=== PATIENT | female | born 1985 | race Caucasian/White ===

== ENCOUNTER 2017-08-22 00:15 | Emergency (ER) | payer SELFPAY ==
[2017-08-22 00:28] VITALS: BP 117/78; PULSE 94; RESP 16; TEMP 100; O2SAT 98
[2017-08-22] MEDS ORDERED: Promethazine/Cod 6.25mg-10mg/5ml Syr UD PO STA (00:43)
[2017-08-22] MEDS ORDERED: Promethazine/Cod 6.25mg-10mg/5ml Syr UD ONE (00:46)
[2017-08-22] MEDS ORDERED: Albuterol 0.083% Inhal Sol (2.5 mg/3 mL) UD ONE ×2 (00:48→01:15)
[2017-08-22] MEDS: Albuterol 0.083% Inhal Sol (2.5 mg/3 mL) UD INH SCH ×2 (00:50→01:12)
--- NOTE | 2017-08-22 01:36 | C.PDOC ---
History Of Present Illness 32 year old female presents to the ER with a complaint of fever, cough, and sore throat for the past week. Patient states she has been taking OTC meds and some left over amoxicillin with no relief to symptoms. Patient notes she is a smoker; denies recent travel or sick contact. Time Seen by Provider: 08/22/17 00:35 Chief Complaint (Nursing): Flu-like Symptoms History Per: Patient History/Exam Limitations: no limitations Onset/Duration Of Symptoms: Days Current Symptoms Are (Timing): Still Present Location Of Pain: Throat Sick Contacts (Context): None Associated Symptoms: Fever, Sore Throat, Cough Ear Symptoms: Bilateral: None Recent travel outside of the [place]: No Past Medical History Reviewed: Historical Data, Nursing Documentation, Vital Signs Vital Signs: Last Vital Signs Temp 100 F H 08/22/17 00:24 Pulse 94 H 08/22/17 00:24 Resp 16 08/22/17 00:24 BP 117/78 08/22/17 00:24 Pulse Ox 98 08/22/17 02:21 - Medical History PMH: No Chronic Diseases Surgical History: No Surg Hx Family History: States: Unknown Family Hx - Social History Hx Tobacco Use: Yes Hx Alcohol Use: Yes Hx Substance Use: No - Immunization History Hx Tetanus Toxoid Vaccination: No Hx Influenza Vaccination: No Hx Pneumococcal Vaccination: No Review Of Systems Constitutional: Positive for: Fever. Negative for: Chills ENT: Positive for: Throat Pain Cardiovascular: Negative for: Chest Pain Respiratory: Positive for: Cough. Negative for: Shortness of Breath Physical Exam - Physical Exam Appears: Non-toxic, No Acute Distress Skin: Normal Color, Warm, Dry Head: Atraumatic, Normacephalic Eye(s): bilateral: Normal Inspection Nose: Normal, No Discharge Oral Mucosa: Moist Throat: Normal, No Erythema, No Exudate Neck: Normal, Supple Chest: Symmetrical, No Tenderness Cardiovascular: Rhythm Regular Respiratory: Rhonchi (Scattered), Wheezing (Expiratory), Other (Good air entry) Neurological/Psych: Oriented x3, Normal Speech, Normal Cognition Gait: Steady ED Course And Treatment O2 Sat by Pulse Oximetry: 98 (room air) Pulse Ox Interpretation: Normal Progress Note: CXR, influenze ab, and rapid strep ordered. nebulizer treatment, prednisone, and cough syrup administered. Reassessment Condition: Improved (Symptoms improved after meds. CXR wnl. pt d/c with meds and advised to follow up with PMD or in clinic . Pt verbalized understanding of these instructions) Disposition Counseled Patient/Family Regarding: Diagnosis, Need For Followup, Rx Given - Disposition Referrals: [facility] [Outside] Disposition: HOME/ ROUTINE Disposition Time: 01:33 Condition: STABLE Additional Instructions: Increase PO fluids Take meds as directed Return to ER if worse Prescriptions: Albuterol HFA [Ventolin HFA 90 mcg/actuation (8 g)] 2 puff IH QID #1 inhaler Azithromycin [Zithromax] 250 mg PO DAILY #6 tab Benzonatate [Tessalon Perles] 100 mg PO TID #20 sgl Cetirizine HCl [Zyrtec] 10 mg PO DAILY #20 capsule predniSONE [Prednisone] 40 mg PO DAILY #8 tab Instructions: Acute Bronchitis (ED) Forms: [employer] (Frisian) - Clinical Impression Clinical Impression: Bronchitis - Scribe Statement The provider has reviewed the documentation as recorded by the Scribximena Bates All medical record entries made by the Scribe were at my direction and personally dictated by me. I have reviewed the chart and agree that the record accurately reflects my personal performance of the history, physical exam, medical decision making, and the department course for this patient. I have also personally directed, reviewed, and agree with the discharge instructions and disposition.
--- NOTE | 2017-08-22 09:00 | RAD ---
HISTORY: COMPARISON: 07/26/2013. TECHNIQUE: Chest PA and lateral FINDINGS: LINES AND TUBES: None. LUNG AND PLEURA: The lungs are well inflated. The right lung is clear. There is airspace disease in the left lower lobe with air bronchogram. HEART AND MEDIASTINUM: The heart is not enlarged. The hilar and mediastinal contours are within normal limits. SKELETAL STRUCTURES: The bony structures are within normal limits for the patient's age. VISUALIZED UPPER ABDOMEN: Normal. OTHER FINDINGS: None. IMPRESSION: Left lower lobe pneumonia. Follow-up after medical management is recommended to ensure complete resolution. There is a discrepancy with the ER preliminary read. Important findings were discussed with TIKI López on 08/22/2017 at 8:55 a.m. The final report is also tagged to the PA review folder.
== END 2017-08-22 01:45 | disposition home or self-care (01) ==
LOC: C.ER 00:15
DX: J40 Bronchitis, not specified as acute or chronic (principal); F17.210 Nicotine dependence, cigarettes, uncomplicated

== ENCOUNTER 2018-03-03 11:09 | Emergency (ER) | payer MEDICAID, OTHER ==
[2018-03-03 11:14] VITALS: O2SAT 98
[2018-03-03] MEDS ORDERED: Sodium Chloride 0.9% 1,000 ML IV ONE (11:28)
[2018-03-03] MEDS ORDERED: Sodium Chloride 0.9% 1,000 ML ONE (11:45)
[2018-03-03] MEDS ORDERED: Clindamycin 600mg/50ml NS 600 MG/50 ML BAG IVPB ONE (11:45)
--- NOTE | 2018-03-03 12:12 | C.PDOC ---
History Of Present Illness 32 yo female come in for evaluation of sore throat gradually developed for past 3 days associated with fever, pain on swallow. Pt admits, " for past 4-5 months developed frequent strep throat". Otherwise, pt denies headache, dizziness, drooling, neck pain, CP, cough, wheezing, SOB, abd. pain, V/D, back pain, UTI sx. Ambulate to Ed for evaluation, not in any apparent distress. Time Seen by Provider: 03/03/18 11:19 Chief Complaint (Nursing): ENT Problem History Per: Patient Past Medical History Reviewed: Historical Data, Nursing Documentation, Vital Signs Vital Signs: Last Vital Signs Temp 98.3 F 03/03/18 11:12 Pulse 91 H 03/03/18 11:12 Resp 20 03/03/18 11:12 BP 120/80 03/03/18 11:12 Pulse Ox 98 03/03/18 13:28 - Medical History PMH: No Chronic Diseases Denies: Asthma, COPD Family History: States: Unknown Family Hx - Social History Hx Tobacco Use: Yes Hx Alcohol Use: Yes Hx Substance Use: No - Immunization History Hx Tetanus Toxoid Vaccination: No Hx Influenza Vaccination: No Hx Pneumococcal Vaccination: No Review Of Systems Except As Marked, All Systems Reviewed And Found Negative. Constitutional: Positive for: Fever. Negative for: Malaise ENT: Positive for: Nose Congestion, Throat Pain, Throat Swelling. Negative for : Ear Pain, Ear Discharge, Nose Discharge Cardiovascular: Negative for: Chest Pain, Palpitations Respiratory: Negative for: Cough, Shortness of Breath, Wheezing Gastrointestinal: Negative for: Nausea, Vomiting, Abdominal Pain, Diarrhea Genitourinary: Negative for: Dysuria Musculoskeletal: Negative for: Neck Pain Skin: Negative for: Rash Neurological: Negative for: Weakness, Numbness, Altered Mental Status, Headache , Dizziness Physical Exam - Physical Exam Appears: Well, Non-toxic, No Acute Distress Skin: Normal Color, Warm, Dry, No Rash Head: Normacephalic Eye(s): bilateral: PERRL Ear(s): Bilateral: Normal Nose: No Flaring, Discharge (scant clear rhinorrhea B/L), No Deformity Oral Mucosa: Moist, No Drooling Throat: Erythema (diffuse B/L), Exudate (B/L copious with mod B/L tonsillar enlargement), No Drooling, Other (uvula midline, no edema.) Neck: Trachea Midline, Supple, Other ((-) meningeal sign) Lymphatic: Adenopathy (B/L submandibular LMD) Cardiovascular: Rhythm Regular, No Murmur, No JVD Respiratory: No Decreased Breath Sounds, No Accessory Muscle Use, No Stridor, No Wheezing Gastrointestinal/Abdominal: Soft, No Tenderness, No Distention, No Guarding Back: No CVA Tenderness Extremity: Normal ROM, No Deformity, No Swelling Neurological/Psych: Oriented x3, Normal Speech ED Course And Treatment - Laboratory Results Result Diagrams: 03/03/18 12:08 03/03/18 12:08 Lab Interpretation: No Acute Changes O2 Sat by Pulse Oximetry: 98 Pulse Ox Interpretation: Normal Progress Note: On re-evaluation, pt is afebrile, hemodynamicaly stable. non- toxic. Tolerate po well in ED. PulsEOx 98% RA. ENT: exam c/w acute tonsillitis. uvula midline, no edema. neck: Supple, (-) meningeal sign. Lungs : CTA B/L, BS equal B/L. Abd: benign, (-) guarding, (-) rebound. Neurologicaly intact. Blood work review and appears normal. Labette (-). STrep ( -). results review and discussed with patient. Pt advised on course of ds. ref. to f/u with PMD, ENT in 2-3 days for re-evaluation. Return to ED if anyw orsening or new changes. Disposition Counseled Patient/Family Regarding: Studies Performed, Diagnosis, Need For Followup, Rx Given - Disposition Referrals: Baldo Santacruz MD [Staff Provider] - Disposition: HOME/ ROUTINE Disposition Time: 13:14 Condition: STABLE Additional Instructions: Encourage fluids Take medication as prescribed Follow up with PMD, ENT In 2-3 days for re-evaluation. return to ED if any worsening or new changes. Prescriptions: Clindamycin [Cleocin] 300 mg PO Q6 #28 cap Ibuprofen [Motrin Tab] 600 mg PO TID #20 tab Prednisone [Deltasone] 60 mg PO DAILY #9 tablet Instructions: Sore Throat, Adult (DC) Forms: [employer] (Thai) - Clinical Impression Clinical Impression: Tonsillitis
[2018-03-03 12:13] LABS: BASO % 0.4 % (0.0-2.0); EOS # 0.2 K/uL (0.0-0.7); EOS % 2.3 % (0.0-4.0); HEMOGLOBIN 10.8 g/dL (11.0-16.0); LYMPH # 1.2 K/uL (1.0-4.3); LYMPH % 12.6 % (20.0-40.0); MEAN CELL VOLUME 77.4 fL (81.0-99.0); MEAN CORPUSCULAR HEMOGLOBIN 25.9 pg (27.0-31.0); MEAN CORPUSCULAR HGB CONC 33.5 g/dL (33.0-37.0); MEAN PLATELET VOLUME 7.2 fL (7.2-11.7); MONO # 0.8 K/uL (0.0-0.8); MONO % 8.5 % (0.0-10.0); NEUT # 7.2 K/uL (1.8-7.0); NEUT % 76.2 % (50.0-75.0); NRBC % 0.1 % (0.0-2.0); RBC 4.15 Mil/uL (3.80-5.20); RED CELL DISTRIBUTION WIDTH 14.9 % (11.5-14.5); WHITE BLOOD COUNT 9.5 K/uL (4.8-10.8)
[2018-03-03 12:25] LABS: BLOOD UREA NITROGEN 5 mg/dL (7-17); GFR AFRICAN-AMERICAN > 60; GFR NON-AFRICAN AMERICAN > 60; SQUAMOUS EPITHIAL 13 /hpf (0-5); URINE BACTERIA RARE (<OCC); URINE BILIRUBIN NEGATIVE (NEGATIVE); URINE BLOOD 1+ (NEGATIVE); URINE CLARITY Hazy (Clear); URINE COLOR Amber (YELLOW); URINE GLUCOSE (UA) NORMAL (Normal); URINE LEUKOCYTE ESTERASE NEG Leu/uL (Negative); URINE PROTEIN 1+ mg/dL (NEGATIVE); URINE UROBILINOGEN NORMAL mg/dL (0.2-1.0)
[2018-03-03 13:56] VITALS: BP 131/84; PULSE 83; RESP 18; TEMP 98.4
== END 2018-03-03 14:06 | disposition home or self-care (01) ==
LOC: C.ER 11:09
DX: J03.90 Acute tonsillitis, unspecified (principal); Z72.0 Tobacco use
CPT/HCPCS: 80048; 81001; 85025; 86308; 87040; 87070; 87430; 96365; 96375; 99284; J1885; J2930; J7030

== ENCOUNTER 2019-01-16 14:30 | Emergency (ER) | payer MEDICAID, OTHER ==
[2019-01-16 14:50] VITALS: BP 122/76; PULSE 83; RESP 18; TEMP 98.3; O2SAT 98
--- NOTE | 2019-01-16 15:25 | C.PDOC ---
History Of Present Illness 33 year old female presents to the ED with complaint of sore throat that has worsened since last week. Patient states that for last 2-3 years she has had frequent sore throats. She states that she has been seen at [facility] before and given antibiotics a couple of times. She was told if she keeps getting sore throats that she needs to see an ENT. Patient states that she didn't have insurance at the time, but now has medicaid. She states that the pain is to the right side of her throat. She states that she also has heart burn and that she gets it every night. She admits to not seeing a specialist. Patient denies cough, SOB, wheezing, and difficulty breathing. Time Seen by Provider: 01/16/19 14:52 Chief Complaint (Nursing): ENT Problem History Per: Patient History/Exam Limitations: None Onset/Duration Of Symptoms: Days (7), Worse Since Current Symptoms Are (Timing): Still Present Past Medical History Reviewed: Historical Data, Nursing Documentation, Vital Signs Vital Signs: Last Vital Signs Temp 98.3 F 01/16/19 14:47 Pulse 83 01/16/19 14:47 Resp 18 01/16/19 14:47 BP 122/76 01/16/19 14:47 Pulse Ox 98 01/16/19 14:47 - Medical History PMH: Denies: Asthma, COPD Surgical History: No Surg Hx Family History: States: Unknown Family Hx - Social History Hx Tobacco Use: Yes Hx Alcohol Use: Yes Hx Substance Use: No - Immunization History Hx Tetanus Toxoid Vaccination: No Hx Influenza Vaccination: No Hx Pneumococcal Vaccination: No Review Of Systems Constitutional: Negative for: Fever, Chills, Weakness ENT: Positive for: Throat Pain (right sided) Respiratory: Negative for: Cough, Shortness of Breath, Wheezing Neurological: Negative for: Weakness, Numbness, Dizziness Physical Exam - Physical Exam Appears: Well, Non-toxic, No Acute Distress Skin: Normal Color, Warm, Dry Head: Atraumatic, Normacephalic Ear(s): Bilateral: Normal Throat: No Erythema, Other (hypertrophic tonsils, no swelling, no discharge) Neck: Normal ROM, Supple Chest: Symmetrical, No Deformity Cardiovascular: No Rhythm Regular, No Murmur Respiratory: No Accessory Muscle Use, No Rales, No Rhonchi, No Wheezing Neurological/Psych: Oriented x3, Normal Speech, Normal Cognition ED Course And Treatment O2 Sat by Pulse Oximetry: 98 (in RA) Progress Note: Patient given Omeprazole PO and Pepcid PO prescriptions. Discussed plan with patient who expresses understanding. All questions answered and there is agreement with the plan to discharge home with instructions. Patient stable for discharge. Return if symptoms persist or worsen. Disposition - Disposition Referrals: Baldo Santacruz MD [Staff Provider] - Alvin Sosa MD [Staff Provider] - Disposition: HOME/ ROUTINE Disposition Time: 15:18 Condition: STABLE Additional Instructions: Follow up with your PMD and ENT specialist within 2-3 days. Return to ED if feel worse. Prescriptions: Omeprazole 40 mg PO DAILY #30 capsule. Famotidine [Pepcid] 40 mg PO DAILY #30 tab Instructions: Acid Reflux (Gastroesophageal Reflux Disease), Adult (DC) Forms: [employer] (Portuguese) - Clinical Impression Clinical Impression: Sore throat - PA / MACHINE TENDER / Resident Statement MD/DO has reviewed & agrees with the documentation as recorded. (Torri Rg) - Scribe Statement The provider has reviewed the documentation as recorded by the Scribe (Torri Rg) All medical record entries made by the Scribe were at my direction and personally dictated by me. I have reviewed the chart and agree that the record accurately reflects my personal performance of the history, physical exam, medical decision making, and the department course for this patient. I have also personally directed, reviewed, and agree with the discharge instructions and disposition.
== END 2019-01-16 15:40 | disposition home or self-care (01) ==
LOC: C.ER 14:30
DX: J02.9 Acute pharyngitis, unspecified (principal)

== ENCOUNTER → 2019-02-14 | Outpatient (CLI) | payer MEDICAID | LOC: C.PAT 08:34 | DX: J35.01 Chronic tonsillitis (principal) ==

== ENCOUNTER 2019-02-27 16:10 | Emergency (ER) | payer MEDICAID ==
[2019-02-27 17:01] VITALS: BMI 29.5
[2019-02-27] MEDS ORDERED: DTap Vaccine 0.5 ml Vial IM ONE (17:10)
[2019-02-27] MEDS ORDERED: Clindamycin 300 MG in Sodium Chloride 0.9% 50 ML IVPB SCH (17:15)
--- NOTE | 2019-02-27 17:25 | C.PDOC ---
History Of Present Illness 33 year old female presents to the emergency department with complaints of dog bites to the 5th digit of her right hand 2 days ago. Patient states that a small dog was running loose, with otherwise normal behavior but suddenly snapped when she tried to pet him. Patient states that she did not think much of it at the time, but yesterday her finger began to swell and her pain was radiating from her right 5th metacarpal down to her wrist. Patient denies fever, chills. Time Seen by Provider: 02/27/19 17:03 Chief Complaint (Nursing): Bite History Per: Patient History/Exam Limitations: no limitations Onset/Duration Of Symptoms: Days (2) Current Symptoms Are (Timing): Still Present Location Of Injury: Right: Hand Quality Of Symptoms: Painful, Swollen - Animal Bite Description Of The Attack: Tried To Pet Animal Description Of The Animal: Stray Reports Animal's Immunization Status: Unknown Past Medical History Reviewed: Historical Data, Nursing Documentation, Vital Signs Vital Signs: Last Vital Signs Temp 99.3 F 02/27/19 17:01 Pulse 78 02/27/19 17:01 Resp 17 02/27/19 17:01 BP 137/90 02/27/19 17:01 Pulse Ox 98 02/27/19 17:01 Primary Care Provider: Alvin Sosa - Medical History PMH: Gastritis Denies: Chronic Kidney Disease Surgical History: No Surg Hx Family History: States: No Known Family Hx - Social History Hx Tobacco Use: Yes Hx Alcohol Use: Yes Hx Substance Use: No - Immunization History Hx Tetanus Toxoid Vaccination: No Hx Influenza Vaccination: No Hx Pneumococcal Vaccination: No Review Of Systems Except As Marked, All Systems Reviewed And Found Negative. Constitutional: Negative for: Fever, Chills Cardiovascular: Negative for: Chest Pain Respiratory: Negative for: Cough, Shortness of Breath Gastrointestinal: Negative for: Nausea, Vomiting, Diarrhea Musculoskeletal: Positive for: Hand Pain (right) Neurological: Negative for: Weakness, Numbness Physical Exam - Physical Exam Appears: Non-toxic, No Acute Distress Skin: Normal Color, Warm, Dry Head: Atraumatic, Normacephalic Eye(s): bilateral: Normal Inspection Neck: Normal, Supple Chest: Symmetrical Extremity: Normal ROM, Tenderness (to the right 5th digit), Swelling (to the right 5th digit), Other (small puncture wound of the PIP joint of the right 5th digit, erythematous line along the right 5th digit) Neurological/Psych: Oriented x3, Normal Speech, Normal Cognition ED Course And Treatment O2 Sat by Pulse Oximetry: 98 (RA) Pulse Ox Interpretation: Normal Medical Decision Making Medical Decision Making: Plan: Tetanus Cipro 400mg Cleocin 300mg Disposition - Disposition Referrals: Chino Medina MD [Staff Provider] - Disposition: HOME/ ROUTINE Disposition Time: 18:30 Condition: STABLE Prescriptions: Ciprofloxacin 500 mg PO BID #20 [email or web address] Clindamycin [Cleocin] 300 mg PO BID #20 cap Instructions: Animal Bites (DC) Forms: [employer] (Belarusian), General Discharge Instructions - POA Present On Arrival: None - Clinical Impression Clinical Impression: Animal bite wound - Scribe Statement The provider has reviewed the documentation as recorded by the Scribe (Nick Santiago) Provider Attestation: All medical record entries made by the Scribe were at my direction and personally dictated by me. I have reviewed the chart and agree that the record accurately reflects my personal performance of the history, physical exam, medical decision making, and the department course for this patient. I have also personally directed, reviewed, and agree with the discharge instructions and disposition.
[2019-02-27] MEDS ORDERED: Ciprofloxacin 400mg/200ml D5W 400 MG/200 ML BAG IVPB STA (17:27)
[2019-02-27] MEDS ORDERED: Tdap Vaccine 0.5 ml Vial (10-64 yrs) IM ONE ×2 (17:28→17:45)
[2019-02-27] MEDS ORDERED: Ciprofloxacin 400mg/200ml D5W 400 MG/200 ML BAG IVPB ONE (17:40)
[2019-02-27 19:51] VITALS: BP 130/87; PULSE 80; RESP 20; TEMP 98.5; O2SAT 99
== END 2019-02-27 20:17 | disposition home or self-care (01) ==
LOC: C.ER 16:10
DX: S61.256A Open bite of right little finger without damage to nail, initial encounter (principal); W54.0XXA Bitten by dog, initial encounter
CPT/HCPCS: 90471; 90715; 96365; 96367; 99285; J0744